=== PATIENT | female | born 1985 | race Caucasian/White ===

== ENCOUNTER 2016-08-22 12:19 | Outpatient (CLI) | payer OTHER ==
[~2016-08-22] VITALS: Ht 154.9 cm; Wt 67.4 kg
[~2016-08-22 12:19] MED LIST: ENDOCET 5-3251 EACH PO; IBUPROFEN800 MG PO; PRENATAL TABLE1 EAC3 PO; ZANTAC150 MG PO
[2016-08-22 13:08] LABS: EOSINOPHIL (%) 0.6 % (0-5); EOSINOPHIL COUNT 0.1 K/uL (0-0.3); HEMATOCRIT 37.7 % (36.0-46.0); IMMATURE GRANULOCYTE (%) 0.6 % (0.0-0.7); IMMATURE GRANULOCYTE COUNT 0.1 K/uL; INSTRUMENT ABS NEUTROPHIL CT 7.2 K/uL; LYMPHOCYTE COUNT 2.3 K/uL (1.0-2.8); MCH 29.6 PG (29.0-34.0); MCV 87.3 FL (83-99); MEAN PLAT.VOLUME 10.5 uM^3 (9.5-12.4); MONOCYTE COUNT 0.5 K/uL (0-0.8); NEUTROPHIL (%) 71.3 % (45-76); NEUTROPHIL COUNT 7.2 K/uL (1.8-6.4); PLATELET COUNT 218 K/uL (156-360); RBC DIS.WIDTH-CV 12.7 % (11.8-14.6); RBC DIS.WIDTH-SD 39.8 % (39-53); RED BLOOD COUNT 4.32 M/uL (3.80-5.20); WHITE BLOOD COUNT 10.1 K/uL (4.1-10.2)
[2016-08-22 13:18] LABS: CHLORIDE 107 mEq/L (99-109); POTASSIUM 4.8 mEq/L (3.7-5.4); SODIUM 136 mEq/L (136-147)
[2016-08-22 13:20] LABS: GLUCOSE 101 mg/dL (70-99)
[2016-08-22 13:22] LABS: ANION GAP 12 MEQ/L (2-14)
[2016-08-22 13:24] LABS: GFR ESTIMATE (CALCULATED) > 59 mL/min/
[2016-08-22 13:25] LABS: UREA NITROGEN (BUN) 10 mg/dL (9-23)
[2016-08-22 13:43] LABS: TROP-I INTERPRETATION NEGATIVE; TROPONIN-I < 0.01 ng/mL (0.0-0.30)
[2016-08-22 13:52] LABS: D-DIMER ELISA 1.59 mg/L FEU (< 0.57); PROTHROMBIN TIME 9.7 (9.2-11.2); PTT 27.9 (25-32)
[2016-08-22 17:28] VITALS: BP 105/74
[2016-08-22 17:42] VITALS: BP 105/73
[2016-08-22 17:58] VITALS: BP 108/70
[2016-08-22 18:56] VITALS: BP 116/80
[2016-08-22 19:09] LABS: UR CREATININE CONCENTRATION 46.3 MG/DL
== END 2016-08-22 19:10 | disposition home or self-care (01) ==
LOC: LDRP-OP 12:19 → EME 12:19 → EDSTATUS 16:31 → 2WEST 16:32
PROVIDERS: Emergency Medicine; Midwife
DX: O26.893 Other specified pregnancy related conditions, third trimester (principal); R07.9 Chest pain, unspecified; Z3A.36 36 weeks gestation of pregnancy
CPT/HCPCS: 59025; 71275; 80048; 82570; 84156; 84484; 85025; 85379; 85610; 85730; 93005; 99281; 99285; G0378; J7030

== ENCOUNTER 2016-09-18 09:09 | Inpatient (IN) | payer OTHER ==
[2016-09-18] VITALS (18 sets, daily range): BP systolic 119–157; BP diastolic 69–96
[~2016-09-18] VITALS: Ht 154.9 cm; Wt 68.9 kg
[2016-09-18 09:42] LABS: EOSINOPHIL (%) 0.4 % (0-5); HEMATOCRIT 41.7 % (36.0-46.0); IMMATURE GRANULOCYTE (%) 0.7 % (0.0-0.7); IMMATURE GRANULOCYTE COUNT 0.1 K/uL; INSTRUMENT ABS NEUTROPHIL CT 7.2 K/uL; LYMPHOCYTE COUNT 2.1 K/uL (1.0-2.8); MCH 28.7 PG (29.0-34.0); MCHC 32.4 G/DL (30.0-36.0); MCV 88.7 FL (83-99); MEAN PLAT.VOLUME 11.1 uM^3 (9.5-12.4); MONOCYTE (%) 6.1 % (3-12); MONOCYTE COUNT 0.6 K/uL (0-0.8); NEUTROPHIL (%) 71.7 % (45-76); NEUTROPHIL COUNT 7.2 K/uL (1.8-6.4); PLATELET COUNT 164 K/uL (156-360); RBC DIS.WIDTH-CV 13.6 % (11.8-14.6); RBC DIS.WIDTH-SD 43.8 % (39-53); WHITE BLOOD COUNT 10.1 K/uL (4.1-10.2)
[2016-09-18] MEDS ORDERED: IBUPROFEN800 MG PO (17:33)
[2016-09-19 23:06] VITALS: BP 116/63
[2016-09-20 07:26] VITALS: BP 122/59
== END 2016-09-20 13:17 | disposition home or self-care (01) | DRG 775 ==
LOC: LDRP-OP → 2WEST 09:10 → LDRP-OP 10-13 05:37
PROVIDERS: Nurse Practitioner
PROC: 00HU33Z Insertion of Infusion Device into Spinal Canal, Percutaneous Approach (ICD-10-PCS; principal; 2016-09-18)
PROC: 3E0R3CZ (ICD-10-PCS; principal; 2016-09-18)
PROC: 10907ZC Drainage of Amniotic Fluid, Therapeutic from Products of Conception, Via Natural or Artificial Opening (ICD-10-PCS; principal; 2016-09-18)
PROC: 10E0XZZ Delivery of Products of Conception, External Approach (ICD-10-PCS; principal; 2016-09-18)
DX: O99.824 Streptococcus B carrier state complicating childbirth (principal); O69.81X0 Labor and delivery complicated by cord around neck, without compression, not applicable or unspecified; Z3A.40 40 weeks gestation of pregnancy; Z37.0 Single live birth
CPT/HCPCS: 85025; C1755; J2540; J3010; J7120